=== PATIENT | male | born 1975 | race Caucasian/White ===

== ENCOUNTER 2023-03-20 21:50 | Inpatient (IN) ==
[2023-03-20] MEDS ORDERED: Nicotine PATCH 21 MG/24 HR PATCH TRANSDERM ONE (22:15)
[2023-03-20] MEDS: Nicotine GUM 4MG FRUIT FLAVOR PO PRN (23:20)
[2023-03-20 23:31] LABS: Urine Benzodiazepine Screen None Detected (None Detect); Urine Cannabinoids Screen None Detected (None Detect); Urine Opiates Screen None Detected (None Detect)
[2023-03-21] MEDS ORDERED: Al Hydrox/Mg Hydrox/Simet LIQ 30 ML UDC PO PRN (09:40)
[2023-03-21] MEDS: Nicotine GUM 4MG FRUIT FLAVOR PO PRN ×2 (11:46→14:45)
[2023-03-21] MEDS: Nicotine GUM 2MG FRUIT FLAVOR PO PRN (17:25)
[2023-03-22] MEDS: Nicotine PATCH 14 MG/24 HR PATCH TRANSDERM SCH (07:55)
[2023-03-22] MEDS: Nicotine GUM 4MG FRUIT FLAVOR PO PRN ×4 (07:56→16:44)
[2023-03-22] MEDS: Vitamin THERAPEUTIC TAB PO SCH (07:56)
[2023-03-22] MEDS: Nicotine GUM 2MG FRUIT FLAVOR PO PRN (10:05)
[2023-03-23] MEDS: Vitamin THERAPEUTIC TAB PO SCH (07:51)
[2023-03-23] MEDS: Nicotine PATCH 14 MG/24 HR PATCH TRANSDERM SCH (07:51)
[2023-03-23] MEDS: Nicotine GUM 4MG FRUIT FLAVOR PO PRN ×5 (08:12→20:31)
[2023-03-23 08:55] VITALS: BP 130/82
[2023-03-24] MEDS: Nicotine PATCH 14 MG/24 HR PATCH TRANSDERM SCH (07:45)
[2023-03-24] MEDS: Vitamin THERAPEUTIC TAB PO SCH (07:45)
[2023-03-24] MEDS: Nicotine GUM 4MG FRUIT FLAVOR PO PRN (08:12)
== END 2023-03-24 12:46 | disposition home or self-care (01) | DRG 776 ==
LOC: ED 21:50 → EDHOLD 03-21 09:24 → BSU 03-21 10:08
PROVIDERS: ADMIT Psychiatry & Neurology Addiction Psychiatry; ATTEND Psychiatry & Neurology Psychiatry